=== PATIENT | female | born 1970 | race African-American/Black ===

== ENCOUNTER 2017-06-11 14:57 | Emergency (ER) | payer OTHER ==
[~2017-06-11] VITALS: Ht 167.6 cm; Wt 86.2 kg
[2017-06-11 15:00] VITALS: BP 159/93
[2017-06-11] MEDS ORDERED: PREDNISONE 20 M20 M1 PO (15:18)
[2017-06-11] MEDS ORDERED: CORTIZONE-10 PL28 GM TOP (15:18)
== END 2017-06-11 15:34 | disposition home or self-care (01) ==
LOC: ER 14:57
DX: L30.9 Dermatitis, unspecified (principal); F10.99 Alcohol use, unspecified with unspecified alcohol-induced disorder

== ENCOUNTER 2018-08-05 03:55 | Emergency (ER) | payer OTHER ==
[~2018-08-05] VITALS: Ht 167.6 cm; Wt 85.3 kg
[~2018-08-05 03:55] MED LIST: CORTIZONE-10 PL28 GM TOP; PREDNISONE 20 M20 M1 PO
[2018-08-05] MEDS ORDERED: NORCO 5-325 TA1 EACH PO (04:57)
[2018-08-05] MEDS ORDERED: CIPROFLOXIN HC2.5 M1 OPHTHALMIC (04:57)
[2018-08-05 05:11] VITALS: BP 156/84
== END 2018-08-05 05:11 | disposition home or self-care (01) ==
LOC: ER 03:55
DX: H16.001 Unspecified corneal ulcer, right eye (principal); Z90.10 Acquired absence of unspecified breast and nipple; Z90.710 Acquired absence of both cervix and uterus